=== PATIENT | female | born 1985 | race Caucasian/White ===

== ENCOUNTER → 2016-10-26 | Outpatient (CLI) | payer OTHER ==
[2016-10-26 11:20] LABS: PROGESTERONE 25.8 NG/ML
[2016-10-26 11:21] LABS: ESTRADIOL 88.6 PG/ML
== END ==
LOC: M WUC 08:14
PROVIDERS: ATTEND Obstetrics & Gynecology Reproductive Endocrinology
DX: Z31.49 Encounter for other procreative investigation and testing (principal)

== ENCOUNTER → 2016-11-05 | Outpatient (CLI) | payer OTHER ==
[2016-11-05 10:13] LABS: PROGESTERONE 44.8 NG/ML
== END ==
LOC: M WUC 08:04
PROVIDERS: ATTEND Obstetrics & Gynecology Reproductive Endocrinology
DX: Z32.00 Encounter for pregnancy test, result unknown (principal)

== ENCOUNTER → 2016-11-09 | Outpatient (CLI) | payer OTHER ==
[2016-11-09 10:33] LABS: PROGESTERONE 48.1 NG/ML
[2016-11-09 10:49] LABS: ESTRADIOL 562.7 PG/ML
== END ==
LOC: M WUC 08:03
PROVIDERS: ATTEND Obstetrics & Gynecology Reproductive Endocrinology
DX: Z32.01 Encounter for pregnancy test, result positive (principal)

== ENCOUNTER 2017-07-08 00:36 | Inpatient (IN) | payer OTHER ==
[~2017-07-08] VITALS: Ht 170.2 cm; Wt 110.0 kg
[2017-07-08] VITALS (66 sets, daily range): BP systolic 121–189; BP diastolic 56–96
[2017-07-08] MEDS ORDERED: LR 1,000 ML IV SCH ×2 (02:03→09:05)
[2017-07-08] MEDS ORDERED: LACTATED RINGER'S 1000 ML IV ONE (02:15)
[2017-07-08 02:37] LABS: MEAN CORPUSCULAR HEMOGLOBIN 31.6 pg (27.0-33.0); MEAN CORPUSCULAR HGB CONC 35.2 g/dl (32.0-36.5); MEAN CORPUSCULAR VOLUME 89.9 fl (80.0-96.0); RED CELL DISTRIBUTION WIDTH 13.2 % (11.5-14.5); WHITE BLOOD COUNT 11.3 K/mm3 (4.0-10.0)
[2017-07-08] MEDS ORDERED: FENTANYL/ROPIVACAINE/NACL BAG 200 ML EPIDURAL SCH (02:41)
[2017-07-08] MEDS ORDERED: NALOXONE INJ 0.4 MG/1 ML VIAL (J2310) IV PRN (02:41)
[2017-07-08] MEDS ORDERED: EPIDURAL COMMENT XX SCH (02:41)
[2017-07-08] MEDS ORDERED: diphenhydrAMINE INJ 50MG/ML VIAL (J1200) IV PRN (02:41)
[2017-07-08] MEDS ORDERED: FENTANYL 2MCG/ML ROPIVACAINE 0.2% IN 0.9% NACL 200ML IVBAG As Ordered ONE (02:41)
[2017-07-08] MEDS ORDERED: EPIDURAL/PCA KEYS XX PRN (02:41)
[2017-07-08] MEDS ORDERED: ONDANSETRON 4MG/2ML VIAL (J2405) IV PRN (02:41)
[2017-07-08] MEDS ORDERED: REFRIGERATOR IV KEYS XX PRN (02:41)
[2017-07-08] MEDS ORDERED: ePHEDrine SULFATE 25 MG/5 ML(5MG/ML) SYRINGE IV PRN (02:41)
[2017-07-08] MEDS ORDERED: LACTATED RINGER'S 1000 ML IV PRN (02:41)
[2017-07-08] MEDS ORDERED: CALCIUM CARBONATE 500 MG CHEW U/D PO ONE (04:30)
--- NOTE | 2017-07-08 06:57 | HPE ---
DATE OF ADMISSION: 07/08/2017 HISTORY OF PRESENT ILLNESS: A 31-year-old 1, para 0, last menstrual period (LMP) 10/08/2016, estimated date of confinement (EDC) 07/15/2017, at 39 and two in active labor, 100% effaced, vertex occiput transverse (OT) 3 cm, bulging membranes. LABORATORY DATA: Her labs are A negative, HIV negative, hepatitis negative, RPR negative, rubella immune. Varicella immune by history. Pap normal. Urine negative. Gonorrhea, chlamydia negative. One-hour glucose early was 90. One -hour glucose of 28 weeks, 109 and GBS negative. RISK FACTORS: She is hypothyroid, morbid obesity with body mass index (BMI) of 339, polycystic ovary syndrome (PCOS), chronic hypertension and dehydrated with 3+ ketones. PHYSICAL EXAMINATION: On examination, she is in moderate distress. Examination of symphysis fundus height is 40, vertex OA, bulging membranes, 100% effaced, -1 station. The rest the examination unremarkable. She has a category two strip because she has been breathing quite a bit, and has +3 ketones. She is normocephalic, atraumatic. Neck full range of motion. Pupils equal and reactive to light. Reflexes are normal. No clonus. There is some edema related to her obesity, but not related to . Her distal pulses are symmetric. No evidence of deep venous thrombosis (DVT), pulmonary embolism (PE) or superficial phlebitis. Chest is clear bilaterally to bases. No wheeze, rhonchi. No costovertebral angle tenderness. Four quadrant bowel sounds are noted and relaxation between contractions. She has no rashes, lesions or pruritus or arthralgia, myalgia. No complaint of cough, wheezes, shortness of breath or dyspnea on exertion. No chest pain. Not bleeding. Neuro complete. No incontinence, urgency or frequency. No nausea, vomiting, diarrhea or constipation. No diabetic issues. 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 PAST MEDICAL AND SURGICAL HISTORY: Unremarkable. FAMILY HISTORY: Noncontributory. SOCIAL HISTORY: She does not smoke or drink or abuse drugs. There is no domestic violence. She has good support. Blood pressure initially was 160/86 and presently is 146/75, temperature 97.6 pulse 78, respirations are 20. Urine is 1.020, 3+ ketones, rest is negative. ASSESSMENT AND PLAN: We have an active labor at 39+ weeks of gestation. Our plan is to admit, bolus intravenous (IV) until ketones negative, epidural on a as needed basis and when appropriate, rupture of membranes and advance in . All questions were answered and the patient and and [id number] expressed understanding of the plan of care.
[2017-07-08] MEDS ORDERED: BICITRA 30ML SOLN UDC PO ONE (08:00)
[2017-07-08] MEDS ORDERED: MEASLES,MUMPS,RUBELLA VACCINE INJ (MMR-II) (90707) SC SCH (09:00)
[2017-07-08] MEDS: DOCUSATE SODIUM 100 MG CAP PO SCH ×2 (09:00→20:45)
[2017-07-08] MEDS ORDERED: RHOGAM 300 MCG (1500 IU) INJ (J2790) IM SCH (09:00)
[2017-07-08] MEDS: PRENATAL VITAMINS CHEWABLE TABLET PO SCH (09:00)
--- NOTE | 2017-07-08 09:04 | IPNPDOC ---
Text Note Date of Service The patient was seen on 07/08/17. NOTE SBAR from Dr Aldrich at ~730. Active labor. NST Cat 1 Cx No significant cx change Will start pitocin Sessions VSJacques, I+O VSJacques I+O Laboratory Tests 07/08/17 02:22 Red Blood Count 3.54 L, Mean Corpuscular Volume 89.9, Mean Corpuscular Hemoglobin 31.6, Mean Corpuscular Hemoglobin Concent 35.2, Red Cell Distribution Width 13.2 Vital Signs Date Time Temp Pulse Resp B/P (MAP) Pulse Ox O2 Delivery O2 Flow Rate FiO2 07/08/17 07:51 88 137/74 (95) 07/08/17 06:00 97.5 SESSIONS,MARYAM Reddy MD Jul 08, 2017 09:04
[2017-07-08] MEDS ORDERED: OXYTOCIN DRIP 30 UNITS in APPROPRIATE DILUENT 1 EA IV SCH ×2 (09:15→13:29)
[2017-07-08] MEDS ORDERED: OXYTOCIN 30 UNITS IN 0.9% NaCl 500ML IV BAG (J2590) As Ordered ONE (12:17)
[2017-07-08] MEDS ORDERED: DIBUCAINE 1% OINTMENT 30GM TOP PRN (13:30)
[2017-07-08] MEDS ORDERED: METOCLOPRAMIDE INJ 10MG/2ML VIAL (J2765) IV PRN (13:30)
--- NOTE | 2017-07-08 13:38 | DNPDOC ---
[facility] Delivery Note Delivery Note DATE OF DELIVERY: 130 [id number] PREDELIVERY DIAGNOSIS: 39+1/7 weeks' gestation and labor. POST DELIVERY DIAGNOSIS: Delivered. PROCEDURE: Spontaneous vaginal delivery FIELD CONTRACTOR: Dr. Patino ANESTHESIA: Epidural X2 ESTIMATED BLOOD LOSS: 300 FINDINGS: wt pending, Score 9/9, male DELIVERY SUMMARY: Called to room at +3. Good effort. Del'd JOHN. No signif delay of vtx, ant or post shoulder. To abd. Good tone and cry. Cord C/C by FOB. Cord blood. Placenta intact with slight traction/massage. Pit going wide open. Fundus firm. 1st degr lac repaired with 3-0 vicryl. Good cosmesis/ hemostasis. Sessions MD PATINO,MARYAM Reddy MD Jul 08, 2017 13:38
[2017-07-08] MEDS: IBUPROFEN 800 MG TAB PO PRN ×2 (15:24→23:46)
[2017-07-08] MEDS: ACETAMINOPHEN TAB 650MG DOSE (2X325MG) PO PRN (20:45)
[2017-07-09] MEDS: ACETAMINOPHEN TAB 650MG DOSE (2X325MG) PO PRN ×3 (04:54→21:40)
--- NOTE | 2017-07-09 06:42 | IPNPDOC ---
Text Note Date of Service The patient was seen on 07/09/17. NOTE PPD1 prog note States feeling well, no complaints. No heavy VB. Pain controlled. Voiding, ambulatory. Bonding well and feeding well. VSSAF CTAB RRR Ut at U-2, firm Ext no CCE a/p: Doing well. routine pp care. Sessions VSJacques, I+O VSJacques, I+O Vital Signs Date Time Temp Pulse Resp B/P (MAP) Pulse Ox O2 Delivery O2 Flow Rate FiO2 07/08/17 18:00 98.8 102 18 137/69 (91) 95 Room Air SESSIONS,MARYAM Reddy MD Jul 09, 2017 06:42
[2017-07-09 06:45] VITALS: BP 145/86
[2017-07-09] MEDS: PRENATAL VITAMINS CHEWABLE TABLET PO SCH (09:39)
[2017-07-09] MEDS: IBUPROFEN 800 MG TAB PO PRN ×2 (09:40→21:40)
[2017-07-09] MEDS: DOCUSATE SODIUM 100 MG CAP PO SCH ×2 (09:40→21:40)
[2017-07-09] MEDS ORDERED: INFLUENZA QUADRIVALENT PF VACCINE 0.5ML SYRINGE (90686) IM ONE (14:15)
[2017-07-09] MEDS: guaiFENesin SYRUP 200 MG/10 ML UDC PO PRN ×2 (14:17→21:41)
--- NOTE | 2017-07-09 14:27 | IPN ---
DATE: 07/09/2017: This patient has requested circumcision of their male . After discussing the risks and benefits of circumcision medical and nonmedical indications, the penile block aftercare, answered all questions, expressed understanding of the penile block and aftercare, signed and witnessed consent form. We await the clearance by the line palletizer, Dr. Aldrich.
[2017-07-09 18:12] VITALS: BP 134/64
[2017-07-10 06:00] VITALS: BP 121/57
[2017-07-10] MEDS: ACETAMINOPHEN TAB 650MG DOSE (2X325MG) PO PRN (06:16)
[2017-07-10] MEDS: guaiFENesin SYRUP 200 MG/10 ML UDC PO PRN ×2 (06:16→12:26)
[2017-07-10] MEDS: IBUPROFEN 800 MG TAB PO PRN (07:59)
[2017-07-10] MEDS: DOCUSATE SODIUM 100 MG CAP PO SCH (08:00)
[2017-07-10] MEDS: PRENATAL VITAMINS CHEWABLE TABLET PO SCH (09:00)
[2017-07-10] MEDS ORDERED: COLA100C5 PO (10:31)
[2017-07-10] MEDS ORDERED: ACET50TA PO (10:32)
[2017-07-10] MEDS ORDERED: IBUP-1114 PO (10:32)
[2017-07-10] MEDS ORDERED: ADACEL/BOOSTRIX VACCINE (DIPHTH/PERTUSS/ACELL/TETANUS)0.5ML SYR (90715) IM ONE (12:00)
[2017-07-11] MEDS ORDERED: INFLUENZA QUADRIVALENT PF VACCINE 0.5ML SYRINGE (90686) IM ONE (09:00)
== END 2017-07-10 12:52 | disposition home or self-care (01) | DRG 775 ==
LOC: M LDO 00:36 → M LDI 01:53 → M OBS 16:16
PROVIDERS: ADMIT Obstetrics & Gynecology; ATTEND Obstetrics & Gynecology
PROC: 10E0XZZ Delivery of Products of Conception, External Approach (ICD-10-PCS; principal; 2017-07-08)
PROC: 0HQ9XZZ Repair Perineum Skin, External Approach (ICD-10-PCS; 2017-07-08)
PROC: 10907ZC Drainage of Amniotic Fluid, Therapeutic from Products of Conception, Via Natural or Artificial Opening (ICD-10-PCS; 2017-07-08)
PROC: 30233S1 Transfusion of Nonautologous Globulin into Peripheral Vein, Percutaneous Approach (ICD-10-PCS; 2017-07-09)
DX: O99.284 Endocrine, nutritional and metabolic diseases complicating childbirth (principal); Z37.0 Single live birth; Z3A.39 39 weeks gestation of pregnancy; E03.9 Hypothyroidism, unspecified; E66.01 Morbid (severe) obesity due to excess calories; Z68.38 Body mass index [BMI] 38.0-38.9, adult; E28.2 Polycystic ovarian syndrome; O70.0 First degree perineal laceration during delivery; O99.214 Obesity complicating childbirth

== ENCOUNTER → 2018-07-21 | Outpatient (CLI) | payer OTHER | LOC: M LRY 13:45 | DX: Z34.82 Encounter for supervision of other normal pregnancy, second trimester (principal); Z36.89 Encounter for other specified antenatal screening; Z3A.19 19 weeks gestation of pregnancy | CPT/HCPCS: 76811 ==

== ENCOUNTER → 2018-07-27 | Outpatient (CLI) | payer OTHER ==
[2018-07-27 16:24] LABS: BASO % 0.4 % (0.0-1.0); EOS # 0.1 10^3/uL (0.0-0.50); EOS % 1.3 % (0.0-3.0); HEMATOCRIT 37.9 % (36.0-47.0); HEMOGLOBIN 12.7 g/dl (12.0-15.5); IMMATURE GRANULOCYTE % 0.4 % (0-3.0); LYMPH # 1.8 10^3/uL (1.5-4.5); LYMPH % 27.1 % (24.0-44.0); MEAN CORPUSCULAR HEMOGLOBIN 30.8 pg (27.0-33.0); MEAN CORPUSCULAR HGB CONC 33.5 g/dl (32.0-36.5); MONO # 0.4 10^3/uL (0.0-0.8); NEUTROPHILS # 4.3 10^3/uL (1.8-7.7); NEUTROPHILS % 64.8 % (36.0-66.0); PLATELET COUNT, AUTOMATED 202 10^3/uL (150-450); RED BLOOD COUNT 4.12 10^6/uL (4.00-5.40); WHITE BLOOD COUNT 6.7 10^3/uL (4.0-10.0)
[2018-07-27 16:38] LABS: ALT/SGPT 17 U/L (12-78); AST/SGOT 8 U/L (7-37); BILIRUBIN,TOTAL 0.3 MG/DL (0.2-1.0); CREATININE FOR GFR 0.58 MG/DL (0.55-1.30); FREE T4 0.91 NG/DL (0.76-1.46); GLOMERULAR FILTRATION RATE > 60.0 (>60); GLUCOSE CHALLENGE TEST 1 HOUR 91 MG/DL (LESS THAN 140); LDH LACTATE DEHYDROGENASE 120 U/L (84-246); THYROID STIMULATING HORMONE 0.958 uIU/ML (0.358-3.740); URIC ACID 3.6 MG/DL (2.6-6.0)
[2018-07-27 16:50] LABS: RUBELLA IgG QUALITATIVE IMMUNE (IMMUNE)
[2018-07-27 16:58] LABS: ESTIMATED AVERAGE GLUCOSE 94 MG/DL (60-110); HEMOGLOBIN A1c 4.9 %
[2018-07-27 17:19] LABS: HIV 1&2 SCREEN CENTAUR NEGATIVE (NEGATIVE)
[2018-07-27 17:24] LABS: TOTAL PROTEIN,RANDOM URINE 5.3 MG/DL (0.0-12.0)
[2018-07-27 17:24] LABS: CREATININE,RANDOM URINE 22.8 MG/DL
[2018-07-27 18:49] LABS: CHLAMYDIA DNA AMPLIFICATION NEGATIVE (NEGATIVE); GC DNA AMPLIFICATION NEGATIVE (NEGATIVE)
[2018-07-29 13:28] LABS: HBsAg Prenatal NEGATIVE (NEGATIVE)
[2018-07-29 13:57] LABS: HEPATITIS C VIRUS ABY INDEX < 0.0 INDEX (<0.8)
== END ==
LOC: M LRY 10:41
DX: Z34.82 Encounter for supervision of other normal pregnancy, second trimester (principal); Z36.89 Encounter for other specified antenatal screening; Z3A.16 16 weeks gestation of pregnancy
CPT/HCPCS: 84460

== ENCOUNTER → 2018-08-03 | Outpatient (REF) | payer OTHER | LOC: M LAB REF 13:15 | DX: Z36.89 Encounter for other specified antenatal screening (principal) | CPT/HCPCS: 87086 ==

== ENCOUNTER → 2018-08-17 | Outpatient (CLI) | payer OTHER | LOC: M LRY 13:34 | DX: Z34.82 Encounter for supervision of other normal pregnancy, second trimester (principal); Z36.89 Encounter for other specified antenatal screening; Z3A.23 23 weeks gestation of pregnancy | CPT/HCPCS: 76816 ==

== ENCOUNTER → 2018-10-03 | Outpatient (CLI) | payer OTHER ==
[~2018-10-03] MED LIST: COLA100C5 PO; IBUP-1114 PO; MAPA500T17 PO
[2018-10-03 16:48] LABS: HEMATOCRIT 38.8 % (36.0-47.0); HEMOGLOBIN 12.5 g/dl (12.0-15.5); MEAN CORPUSCULAR HEMOGLOBIN 30.3 pg (27.0-33.0); MEAN CORPUSCULAR HGB CONC 32.2 g/dl (32.0-36.5); MEAN CORPUSCULAR VOLUME 94.2 fl (80.0-96.0); PLATELET COUNT, AUTOMATED 183 10^3/uL (150-450); RED BLOOD COUNT 4.12 10^6/uL (4.00-5.40); WHITE BLOOD COUNT 7.3 10^3/uL (4.0-10.0)
== END ==
LOC: M LRY 12:23
PROVIDERS: ATTEND Advanced Practice Midwife
DX: Z36.89 Encounter for other specified antenatal screening (principal)
CPT/HCPCS: 36415; 82950; 85027; 86850; 86900; 86901; J2790

== ENCOUNTER → 2018-10-05 | Outpatient (REF) | payer OTHER ==
[2018-10-05 18:09] LABS: TOTAL PROTEIN,RANDOM URINE 21.5 MG/DL (0.0-12.0)
== END ==
LOC: M LAB REF 17:03
PROVIDERS: ATTEND Advanced Practice Midwife
DX: O99.89 Other specified diseases and conditions complicating pregnancy, childbirth and the puerperium (principal); Z36.89 Encounter for other specified antenatal screening; Z3A.00 Weeks of gestation of pregnancy not specified

== ENCOUNTER → 2018-11-15 | Outpatient (REF) | payer OTHER ==
[~2018-11-15] MED LIST changes: -MAPA500T17 PO; +MAPA500T2 PO
== END ==
LOC: M LAB REF 17:36
PROVIDERS: ATTEND Specialist
DX: Z34.83 Encounter for supervision of other normal pregnancy, third trimester (principal); Z3A.00 Weeks of gestation of pregnancy not specified

== ENCOUNTER 2018-12-08 12:23 | Inpatient (IN) | payer OTHER ==
[~2018-12-08] VITALS: Ht 171.4 cm; Wt 108.5 kg
[2018-12-08 12:44] VITALS: BP 122/72
[2018-12-08] MEDS ORDERED: PRENTAB9 PO (13:19)
[2018-12-08] MEDS ORDERED: LEVO25TA5 PO (13:19)
[2018-12-08] MEDS ORDERED: ZYRTTAB8 PO (13:20)
[2018-12-08] MEDS ORDERED: miSOPROStol 50 MCG 1/2 TAB (S0191) PO SCH (13:30)
[2018-12-08 14:30] LABS: HEMATOCRIT 37.1 % (36.0-47.0); HEMOGLOBIN 12.3 g/dl (12.0-15.5); MEAN CORPUSCULAR HEMOGLOBIN 30.2 pg (27.0-33.0); MEAN CORPUSCULAR HGB CONC 33.2 g/dl (32.0-36.5); MEAN CORPUSCULAR VOLUME 91.2 fl (80.0-96.0); PLATELET COUNT, AUTOMATED 210 10^3/uL (150-450); RED BLOOD COUNT 4.07 10^6/uL (4.00-5.40); WHITE BLOOD COUNT 9.9 10^3/uL (4.0-10.0)
[2018-12-08 15:24] VITALS: BP 135/78
[2018-12-08] MEDS ORDERED: ACETAMINOPHEN 500 MG TAB PO PRN (16:30)
[2018-12-08 17:23] VITALS: BP 129/72
[2018-12-08] MEDS ORDERED: LR 1,000 ML IV SCH (18:18)
[2018-12-08] MEDS ORDERED: OXYTOCIN 30 UNITS IN 0.9% NaCl 500ML IV BAG (J2590) As Ordered ONE (18:21)
[2018-12-08] MEDS ORDERED: OXYTOCIN DRIP 30 UNITS in APPROPRIATE DILUENT 1 EA IV SCH (18:30)
--- NOTE | 2018-12-08 19:07 | HPE ---
DATE OF ADMISSION: 12/08/2018 REASON FOR ADMISSION: Induction of labor. HISTORY OF PRESENT ILLNESS: Mrs. Smith is a 33-year-old 2, para 1 who presents at 39 weeks 2 days estimated gestational age for induction of labor. Her course has been relatively uncomplicated. She initiated care at approximately 15 weeks and has been appropriate throughout. PAST MEDICAL HISTORY: 1. History of chronic hypertension. She has not been on blood pressure medication. 2. Hypothyroidism. 3. Polycystic ovarian syndrome (PCOS). PAST SURGICAL HISTORY: She has had two laparoscopies. OBSTETRICAL HISTORY: She is a 2, para 1. She has had one term vaginal delivery that was an uncomplicated vaginal delivery proven to 7 pounds 8 ounces. Her was complicated by chronic hypertension. MEDICATIONS: Levothyroxine, Zyrtec, and vitamins. ALLERGIES: PENICILLIN. SOCIAL HISTORY: She denies any alcohol, tobacco, or drug use during her . 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 PHYSICAL EXAMINATION: VITAL SIGNS: Stable. She is afebrile. She has a category 1 heart rate tracing. No contractions on tocometer. GENERAL APPEARANCE: Well appearing in no acute distress. LUNGS: Clear to auscultation bilaterally. CARDIOVASCULAR: Heart regular rate and rhythm. ABDOMEN: Gravid, nontender. Estimated weight (EFW) 3400 grams. CERVICAL: She is 3 cm dilated, 50% effaced, -3 station. LABORATORY DATA: Blood type is A negative. Antibody screen is negative. Rubella is immune. RPR is nonreactive. Hepatitis surface antigen is negative. HIV is negative. Hepatitis C is nonreactive. Chlamydia and gonorrhea screens are negative. She had a normal 1-hour Glucola. She is GBS negative. ASSESSMENT: 1. Mrs. Smith is a 33-year-old 2, para 1 at 39 weeks 2 days estimated gestational age, here for induction of labor. 2. Reassuring status. PLAN: 1. Admit to labor and delivery. Complete blood count (CBC), rapid plasma reagin (RPR), type and screen. 2. The patient was thoroughly counseled in regard to induction of labor. Discussed medications as well as procedure performed in the labor and delivery. She has been verbally consented for emergency surgery, blood products, and anesthesia and desires to proceed. 3. Will initiate her induction with 50 mcg of oral misoprostol. MTDD
[2018-12-08] MEDS ORDERED: FENTANYL 2MCG/ML ROPIVACAINE 0.2% IN 0.9% NACL 100ML IVBAG As Ordered ONE (19:30)
[2018-12-08] MEDS ORDERED: ONDANSETRON 4MG/2ML VIAL (J2405) IV PRN (19:35)
[2018-12-08] MEDS ORDERED: NALOXONE INJ 0.4 MG/1 ML VIAL (J2310) IV PRN (19:35)
[2018-12-08] MEDS ORDERED: FENTANYL/ROPIVACAINE/NACL BAG 100 ML EPIDURAL SCH (19:35)
[2018-12-08] MEDS ORDERED: LACTATED RINGER'S 1000 ML IV PRN (19:35)
[2018-12-08] MEDS ORDERED: ePHEDrine SULFATE 25 MG/5 ML(5MG/ML) SYRINGE IV PRN (19:35)
[2018-12-08] MEDS ORDERED: EPIDURAL/PCA KEYS XX PRN (19:35)
[2018-12-08] MEDS ORDERED: EPIDURAL COMMENT XX SCH (19:35)
[2018-12-08] MEDS ORDERED: REFRIGERATOR IV KEYS XX PRN (19:35)
[2018-12-08] MEDS ORDERED: diphenhydrAMINE INJ 50MG/ML VIAL (J1200) IV PRN (19:35)
[2018-12-08] MEDS ORDERED: CALCIUM CARBONATE 500 MG CHEW U/D PO ONE (20:30)
[2018-12-08] MEDS ORDERED: RHOGAM 300 MCG (1500 IU) INJ (J2790) IM SCH (21:00)
[2018-12-08] MEDS ORDERED: MOM 30ML SUSPENSION UDC PO PRN (21:00)
[2018-12-08] MEDS ORDERED: MEASLES,MUMPS,RUBELLA VACCINE INJ (MMR-II) (90707) SC SCH (21:00)
[2018-12-08] MEDS ORDERED: DOCUSATE SODIUM 100 MG CAP PO PRN (21:00)
[2018-12-08] MEDS ORDERED: LIDOCAINE 1% MDV 20ML VIAL INFIL ONE (21:00)
[2018-12-08] MEDS ORDERED: METHYLERGONOVINE MALEATE 0.2 MG TAB PO PRN (21:00)
[2018-12-08] MEDS ORDERED: DIBUCAINE 1% OINTMENT 30GM TOP PRN (21:00)
[2018-12-08] MEDS ORDERED: ANUSOL HC CREAM 30GM TOP PRN (21:00)
[2018-12-08] MEDS ORDERED: OXYTOCIN INJ 10 UNITS/ML VIAL (J2590) IM ONE (21:00)
[2018-12-08] MEDS ORDERED: IBUPROFEN 800 MG TAB As Ordered ONE (21:03)
[2018-12-08] MEDS: IBUPROFEN 800 MG TAB PO PRN (21:06)
--- NOTE | 2018-12-08 21:59 | DN ---
DATE OF DELIVERY: 12/08/2018 TIME OF : 2035 hours GENDER: Male : 9 and 9 WEIGHT: 7 pounds 4 ounces or 3300 grams LACERATIONS: First degree midline laceration. ANESTHESIA: Epidural. COUNTS: 5 laparotomy sponges accounted for prior to and after delivery. Two sharps removed from the delivery field. ESTIMATED BLOOD LOSS: 300 mL DELIVERY NOTE: On the November at 2036 hours Mrs. Smith a 33-year-old 2, now para 2 had a spontaneous vaginal delivery of a live born male infant, 9 and 9, weight was 3300 grams or 7 pounds 4 ounces. Head was deliver right occiput anterior (CLARA). There was a nuchal cord which was manually reduced. This was followed by delivery of the right compound hand and delivery of shoulders and corpus. was handed to mom with a good cry. Cord was clamped times two, was cut by the father of the baby under my direction. 10 units of IM pitocin was then given along with uterine massage. Her uterus was firm. On inspection there was a first degree midline laceration. This area was infused with 0.25% Marcaine, and then was repaired with #3-0 Vicryl Rapide. On reinspection, the cervix, vagina and perineum was grossly intact and hemostatic. Mom and baby to recovery in stable condition.
[2018-12-09] VITALS: BP 135/65
[2018-12-09 00:01] VITALS: BP 137/75
[2018-12-09] MEDS: ACETAMINOPHEN 500 MG TAB PO PRN ×4 (03:19→20:34)
[2018-12-09] MEDS ORDERED: LEVOTHYROXINE 25MCG TABLET (0.025MG) PO SCH (06:00)
[2018-12-09] MEDS ORDERED: IBUP1TAB7 PO (06:01)
[2018-12-09] MEDS ORDERED: TYLE500T78 PO (06:03)
[2018-12-09] MEDS: IBUPROFEN 800 MG TAB PO PRN ×2 (06:36→16:38)
[2018-12-09 07:45] VITALS: BP 138/85
[2018-12-09] MEDS ORDERED: PRENATAL VITAMINS CHEWABLE TABLET PO SCH (09:00)
[2018-12-09 18:38] VITALS: BP 145/68
== END 2018-12-09 22:00 | disposition home or self-care (01) | DRG 807 ==
LOC: M LDI 12:23 → M OBS 12-09 06:23
PROVIDERS: ADMIT Obstetrics & Gynecology; ATTEND Obstetrics & Gynecology
PROC: 10E0XZZ Delivery of Products of Conception, External Approach (ICD-10-PCS; principal; 2018-12-08)
PROC: 0HQ9XZZ Repair Perineum Skin, External Approach (ICD-10-PCS; 2018-12-08)
PROC: 3E0P7GC Introduction of Other Therapeutic Substance into Female Reproductive, Via Natural or Artificial Opening (ICD-10-PCS; 2018-12-08)
DX: O10.02 Pre-existing essential hypertension complicating childbirth (principal); Z37.0 Single live birth; O70.0 First degree perineal laceration during delivery; Z3A.39 39 weeks gestation of pregnancy; O69.81X0 Labor and delivery complicated by cord around neck, without compression, not applicable or unspecified; O32.6XX0 Maternal care for compound presentation, not applicable or unspecified; E03.9 Hypothyroidism, unspecified; O99.284 Endocrine, nutritional and metabolic diseases complicating childbirth; Z88.0 Allergy status to penicillin

== ENCOUNTER → 2019-03-27 | Outpatient (CLI) | payer OTHER ==
[~2019-03-27] MED LIST changes: +IBUP1TAB7 PO; +LEVO25TA5 PO; +PRENTAB9 PO; +TYLE500T78 PO; +ZYRTTAB8 PO
== END ==
LOC: M SMT 13:52
PROVIDERS: ATTEND Obstetrics & Gynecology
DX: N91.2 Amenorrhea, unspecified (principal)

== ENCOUNTER → 2020-02-16 | Outpatient (CLI) | payer OTHER ==
--- NOTE | 2020-02-16 13:55 | REP ---
Left index finger series: Four views. History: Foreign body. Sewing needle broken finger. Findings: Four views of the left index finger demonstrate a metallic foreign body in the distal tuft soft tissues. This foreign body measures 2 mm in length. No fractures seen. Impression: Metallic foreign body in the distal tuft soft tissues. No fracture seen. Electronically Signed by Augusto Harvey MD 02/16/2020 01:47 P
== END ==
LOC: M LRY 13:23
PROVIDERS: ATTEND Physician Assistant
DX: S60.459A Superficial foreign body of unspecified finger, initial encounter (principal); X58.XXXA Exposure to other specified factors, initial encounter; Y92.9 Unspecified place or not applicable; Y93.89 Activity, other specified
CPT/HCPCS: 73140; G0463

== ENCOUNTER → 2020-05-28 | Outpatient (REF) | payer OTHER ==
[2020-07-15 20:14] LABS: PROGESTERONE 12.99 NG/ML
== END ==
LOC: M WUC 12:51
PROVIDERS: ATTEND Obstetrics & Gynecology Reproductive Endocrinology
DX: E28.9 Ovarian dysfunction, unspecified (principal)

== ENCOUNTER → 2020-06-03 | Outpatient (REF) | payer OTHER ==
[2020-07-29 22:42] LABS: ESTRADIOL 412.2 PG/ML; PROGESTERONE 18.32 NG/ML; THYROID STIMULATING HORMONE 1.15 uIU/ML (0.358-3.740)
== END ==
LOC: M WUC 11:43
PROVIDERS: ATTEND Obstetrics & Gynecology Reproductive Endocrinology
DX: Z32.01 Encounter for pregnancy test, result positive (principal)